=== PATIENT | female | born 2000 | race Caucasian/White ===

== ENCOUNTER 2023-05-19 09:43 | Emergency (ER) | payer SELFPAY | END 2023-05-19 11:00 | disposition home or self-care (01) | LOC: NAV ERS 09:43 | DX: T42.6X2A Poisoning by other antiepileptic and sedative-hypnotic drugs, intentional self-harm, initial encounter (principal); R00.0 Tachycardia, unspecified; F17.290 Nicotine dependence, other tobacco product, uncomplicated | CPT/HCPCS: 99284 ==